=== PATIENT | female | born 1970 | race Caucasian/White ===

== ENCOUNTER 2017-02-07 15:52 | Emergency (ER) | payer BC, OTHER ==
[2017-02-07 16:07] VITALS: BP 151/96
[2017-02-07] MEDS ORDERED: Ibuprofen 600 MG Tab PO ONE (16:33)
[2017-02-07] MEDS ORDERED: Lidocaine 1% with EPINEPHrine 1:100,000 50 ML MDV SUBCUT STA (16:54)
[2017-02-07] MEDS ORDERED: Bacitracin Oint 1 GM U/D Packet TOP ONE (16:54)
--- NOTE | 2017-02-07 17:38 | EDM.PDOC ---
ED HPI GENERAL MEDICAL PROBLEM - General Chief Complaint: Laceration Stated Complaint: CUT FOOT Time Seen by Provider: 02/07/17 16:29 Source of Information: Reports: Patient, Family, RN Notes Reviewed History Limitations: Reports: No Limitations - History of Present Illness INITIAL COMMENTS - FREE TEXT/NARRATIVE: 46-year-old female presents emergency department day following trauma to her right foot this occurred at work when she actually dropped a table on her foot she ended up getting a laceration to the top part of her foot with extensive bleeding she has no functional complaints Right Feet Pain Score (Numeric/FACES): 4 - Related Data Allergies Allergy/AdvReac Type Severity Reaction Status Date / Time Sulfa (Sulfonamide Allergy Vomiting Verified 02/07/17 16:17 Antibiotics) Home Meds: Home Meds NK [No Known Home Meds] 02/07/17 [History] Past Medical History Cardiovascular History: Reports: Hypertension 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: Reports: , Spontaneous Hematologic History: Reports: Other (See Below) Other Hematologic History: porphyria cutaneous tarda - Infectious Disease History Infectious Disease History: Reports: Chicken Pox Social & Family History - Tobacco Use Smoking Status *Q: Never Smoker Second Hand Smoke Exposure: No - Caffeine Use Caffeine Use: Reports: None - Alcohol Use Days Per Week of Alcohol Use: 3 Number of Drinks Per Day: 3 Total Drinks Per Week: 9 - Recreational Drug Use Recreational Drug Use: No ED ROS GENERAL - Review of Systems Review Of Systems: See Below Constitutional: Reports: No Symptoms Musculoskeletal: Reports: No Symptoms Skin: Reports: Wound ED EXAM, SKIN/RASH Exam: See Below Exam Limited By: No Limitations General Appearance: Alert, WD/WN, No Apparent Distress Front/Back Body Diagram: 1 - 3 cm laceration completely through the dermis, pedal pulse is +2 full range of motion of all digits no tenderness at the ankle ED SKIN PROCEDURES - Laceration/Wound Repair Foot Lac/Wound length In cm: 3 Appearance: Subcutaneous, Clean Distal NVT: Neuro & Vascular Intact, No Tendon Injury Anesthetic Type: Local Local Anesthesia - Lidocaine (Xylocaine): 1% with EPI Local Anesthetic Volume: 2cc Skin Prep: Chlorhexidine (Hibiciens), Saline Saline Irrigation (cc's): 50 Exploration/Debridement/Repair: Wound Explored, In a Bloodless Field, Explored to Base Closed with: Sutures Suture Size: 4-0 # of Sutures: 5 Suture Type: Nylon, Interrupted Sterile Dressing Applied: Nurse Tetanus Status Addressed: Yes (2010) Complications: No Course - Vital Signs Last Recorded V/S: Last Vital Signs Temp 97.9 F 02/07/17 16:26 Pulse 98 02/07/17 16:26 Resp 20 02/07/17 16:26 BP 151/96 H 02/07/17 16:26 Pulse Ox 99 02/07/17 16:26 - Orders/Labs/Meds Orders: Active Orders 24 hr Category Date Time Status Foot 2V Rt [CR] Stat Exams 02/07/17 16:29 Taken Meds: Medications Discontinued Medications Generic Name Dose Route Start Last Admin Trade Name Adrielq PRN Reason Stop Dose Admin Bacitracin 1 dose 02/07/17 16:54 02/07/17 17:18 Bacitracin Oint 1 Gm TOP 02/07/17 16:55 1 dose ONETIME ONE Administration Ibuprofen 600 mg 02/07/17 16:33 02/07/17 16:53 Motrin PO 02/07/17 16:34 600 mg ONETIME ONE Administration Lidocaine/Epinephrine 20 ml 02/07/17 16:54 02/07/17 17:16 Xylocaine 1% With Epinephrine 1:100,000 SUBCUT 02/07/17 16:55 50 ml NOW STA Administration Departure - Departure Time of Disposition: 17:37 Disposition: Home, Self-Care 01 Condition: Good Clinical Impression: Laceration of right foot Qualifiers: Encounter type: initial encounter Qualified Code(s): S91.311A - Laceration without foreign body, right foot, initial encounter - Discharge Information Forms: ED Department Discharge Additional Instructions: Suture removal in 10 days, follow wound care instruction sheet, follow up with primary care for suture removal - My Orders Last 24 Hours: My Active Orders 02/07/17 16:29 Foot 2V Rt [CR] Stat - Assessment/Plan Last 24 Hours: My Active Orders 02/07/17 16:29 Foot 2V Rt [CR] Stat Plan: Assessment Acuity = acute Site and laterality = 3 cm laceration left foot Etiology = secondary to trauma Manifestations = none Location of injury = work Lab values = foot x-ray I did review films myself I cannot appreciate any acute process, the official read from radiology is pending Plan I did review x-ray films with her, follow wound care instruction sheet, suture removal in 10 days, Tylenol or Motrin as needed for pain control Patient was in agreement with the plan all questions were answered, they were instructed to return to the emergency department or call for worsening symptoms. This note was dictated using [employer] voice recognition software please call with any questions.
--- NOTE | 2017-02-08 08:48 | CR ---
Foot 2V Rt INDICATION: trauma pain COMPARISON: None FINDINGS: 3 views. No fracture, dislocation, or other acute bony abnormality. No joint space lane rowing. IMPRESSION: Negative study.
== END 2017-02-07 17:52 | disposition home or self-care (01) ==
LOC: JP.ED 15:52
DX: S91.311A Laceration without foreign body, right foot, initial encounter (principal); I10 Essential (primary) hypertension; Z88.2 Allergy status to sulfonamides; W22.8XXA Striking against or struck by other objects, initial encounter; Y99.0 Civilian activity done for income or pay
CPT/HCPCS: 12002; 73620; 99284; A9270

== ENCOUNTER 2021-05-08 06:53 | Day surgery (SDC) | payer BC ==
[2021-05-08] MEDS ORDERED: Propofol 200 MG/20 ML SDV ONE (07:24)
[2021-05-08] MEDS ORDERED: Midazolam 1 MG/ML 2 ML SDV ONE (07:24)
[2021-05-08] MEDS ORDERED: fentaNYL 100 MCG/2 ML SDV ONE (07:24)
[2021-05-08] MEDS ORDERED: Sodium Chloride 0.9% 1,000 ML IV SCH (07:30)
[2021-05-08 09:40] VITALS: BP 137/75; PULSE 85
--- NOTE | 2021-05-08 13:25 | OR ---
DATE OF PROCEDURE: 05/08/2021 SURGEON: Henry Dennis MD PROCEDURE: Colonoscopy. FINDINGS: Sigmoid colon polyp, approximately 5 mm, completely removed using cold biopsy forceps. COMPLICATIONS: None. NURSE HEALTHCARE MANAGER: None. ANESTHESIA: MAC. PREOPERATIVE DIAGNOSIS: Screening colonoscopy. POSTOPERATIVE DIAGNOSIS: Screening colonoscopy. RISKS: Risks, benefits, alternatives, and limitations including, but not limited to infection, bleeding, perforation, false positives and false negatives were explained to the patient who wished to proceed. PROCEDURE IN DETAIL: The patient was placed in left lateral decubitus position. Digital rectal exam was performed without abnormality. Scope was introduced and advanced atraumatically to the ileocecal valve. A photo was taken of the appendiceal orifice. Scope was brought back to the ascending, transverse, descending colon, and retroflexed. Within the sigmoid colon, there was a small approximately 3 mm polyp, completely removed using cold biopsy forceps. No abnormalities on retroflexion. No old or new blood. No colitis. No diverticulosis. Greater than 8 minutes was spent removing the scope. Prep was acceptable, approximately 90% of the luminal surface could be seen. The patient tolerated the procedure well. Henry Dennis MD /[id number]
== END 2021-05-08 09:50 | disposition home or self-care (01) ==
LOC: JP.SDS 06:53
PROVIDERS: ATTEND Surgery
DX: Z12.11 Encounter for screening for malignant neoplasm of colon (principal); K63.5 Polyp of colon; I10 Essential (primary) hypertension; Z88.2 Allergy status to sulfonamides
CPT/HCPCS: 45380; 88305; J2250; J2704; J3010; J7030